=== PATIENT | male | born 1960 | race African-American/Black ===

== ENCOUNTER 2016-10-31 10:37 | Observation (INO) | payer BC ==
[~2016-10-31] VITALS: Ht 172.7 cm; Wt 63.4 kg
[2016-10-31 11:54] LABS: BASOPHILS 0.7 % (0.0-2.0); EOSINOPHILS 1.1 % (0-7); HEMATOCRIT 43.4 % (42.0-54.0); HEMOGLOBIN 14.8 g/dL (13.5-17.5); LYMPHOCYTES 61.6 % (15-50); MCH 29.7 pg (26.0-34.0); MCHC 34.1 g/dL (31.0-37.0); MCV 87.1 fL (80.0-100.0); MEAN PLATELET VOLUME 9.5 fL (7.4-10.4); MONOCYTES 9.5 % (2-11); NEUTROPHILS 27.1 % (40-80); PLATELET COUNT 194 10x3/uL (130-400); RBC 4.98 10x6/uL (4.20-6.10); RDW 13.6 % (11.5-14.5); WBC 5.7 10x3/uL (4.8-10.8)
[2016-10-31 12:02] LABS: APTT 27.9 SECONDS (22.8-39.4); INR 1.06 (0.85-1.17); PROTIME 13.6 SECONDS (11.6-15.0)
[2016-10-31 12:36] LABS: ALBUMIN 3.8 g/dL (3.4-5.0); ALKALINE PHOSPHATASE 53 U/L (46-116); ALT (SGPT) 61 U/L (10-68); BILIRUBIN - TOTAL 0.96 mg/dL (0.2-1.3); CALC OSMOLALITY 275 mosm/kg (275-300); CALCIUM 8.9 mg/dL (8.5-10.1); CARBON DIOXIDE 28.6 mmol/L (21.0-32.0); CHLORIDE - SERUM 102 mmol/L (98-107); CREATININE - SERUM 0.9 mg/dL (0.6-1.3); GLUCOSE 88 mg/dL (74-106); POTASSIUM - SERUM 4.1 mmol/L (3.5-5.1); PROTEIN - SERUM 7.8 g/dL (6.4-8.2); SODIUM 139 mmol/L (136-145); UREA NITROGEN 9 mg/dL (7-18); eGFR NON AFRICAN AMERICAN > 90 mL/min (90-120)
[2016-10-31 14:00] LABS: UDS - AMPHET NEGATIVE QUAL (NEGATIVE); UDS - BARB NEGATIVE QUAL (NEGATIVE); UDS - BENZO NEGATIVE QUAL (NEGATIVE); UDS - COCAINE NEGATIVE QUAL (NEGATIVE); UDS - METH NEGATIVE QUAL (NEGATIVE); UDS - OPIATE NEGATIVE QUAL (NEGATIVE); UDS - PCP NEGATIVE QUAL (NEGATIVE); UDS - THC NEGATIVE QUAL (NEGATIVE)
[2016-10-31 14:12] LABS: APPEARANCE CLEAR (CLEAR); COLOR STRAW (YELLOW)
[2016-10-31 14:13] LABS: BILIRUBIN NEGATIVE (NEGATIVE); GLUCOSE NEGATIVE (NEGATIVE); KETONE NEGATIVE (NEGATIVE); LEUKOCYTE ESTERASE NEGATIVE (NEGATIVE); NITRITE NEGATIVE (NEGATIVE); PROTEIN NEGATIVE (NEGATIVE); SPECIFIC GRAVITY 1.005 (1.005-1.020); UROBILINOGEN NORMAL (NORMAL)
--- NOTE | 2016-10-31 14:50 | NUR ---
ARRIVE TO UNIT VIA WHEELCHAIR FROM ER. REPORT RECIEVED BY MILO LIU IN ER. ALERT AND ORIENTED X4. DENIES PAIN OR SOB. SPEECH CLEAR. STRENGTH 4/5 UPPER EXTREMITIES BILATERALLY. STRENGTH 5/5 LOWER EXTREMITIES BILATERALLY. FULL ROM. EXPRESSES CONSERNS REGARDING SCHEDULED APPT TOMORROW 11/01/16 FOR BONE BIOPSY RESULTS. CONSULT . INITIATE IV FLUIDS LT AC ORDERED. CONTINUE ADMISSION PROCESS. BED LOCKED AND LOW. CALL LIGHT IN REACH. TWO SIDERAILS UP. REFUSE SCDs.
[2016-10-31] MEDS ORDERED: PRINIVIL20 MG PO (15:05)
[2016-10-31] MEDS ORDERED: NORVASC10 MG PO (15:05)
[2016-10-31 15:59] VITALS: BP 144/83; Ht 172.7 cm; Wt 63.4 kg
[2016-10-31 18:08] LABS: CKMB 0.6 U/L (0.0-3.6); CREATINE KINASE 83 UL (21-232)
[2016-10-31 18:11] LABS: TROPONIN-I < 0.017 ng/mL (0.000-0.060)
--- NOTE | 2016-10-31 19:40 | NUR ---
RECEIVED REPORT, IV-LAC-NS @75, [id number], BED IS LOW, SRX 1,DENIES ANY NEEDS, CALL LIGHT IN REACH, WILL CONTINUE TO MONITOR
[2016-10-31 22:23] VITALS: BP 150/88
[2016-11-01 00:29] LABS: CKMB 0.6 U/L (0.0-3.6); CREATINE KINASE 59 UL (21-232)
[2016-11-01 00:33] LABS: TROPONIN-I < 0.017 ng/mL (0.000-0.060)
[2016-11-01 03:36] VITALS: BP 133/72
--- NOTE | 2016-11-01 03:37 | NUR ---
ASSESSMENT COMPLETE, PT SLEEPING, CALL LIGHT IN REACH, WILL CONTINUE TO MONITOR
[2016-11-01 06:22] VITALS: BP 172/100
[2016-11-01 06:53] LABS: HEMATOCRIT 42.6 % (42.0-54.0); HEMOGLOBIN 14.1 g/dL (13.5-17.5); MCHC 33.1 g/dL (31.0-37.0); MCV 87.7 fL (80.0-100.0); MEAN PLATELET VOLUME 10.7 fL (7.4-10.4); PLATELET COUNT 215 10x3/uL (130-400); RBC 4.86 10x6/uL (4.20-6.10); RDW 13.7 % (11.5-14.5); WBC 4.5 10x3/uL (4.8-10.8)
[2016-11-01 07:20] LABS: CALC OSMOLALITY 274 mosm/kg (275-300); CALCIUM 8.4 mg/dL (8.5-10.1); CARBON DIOXIDE 26.7 mmol/L (21.0-32.0); CHLORIDE - SERUM 105 mmol/L (98-107); CHOL - HDL RATIO 3.3 ratio (2.3-4.9); CHOLESTEROL, TOTAL 163 mg/dL (0-200); CKMB 0.1 U/L (0.0-3.6); CREATINE KINASE 49 UL (21-232); CREATININE - SERUM 0.9 mg/dL (0.6-1.3); GLUCOSE 97 mg/dL (74-106); HDL CHOLESTEROL 49 mg/dL (32-96); LDL CHOLESTEROL 105 mg/dL (0-100); LDL-HDL RATIO 2.1 ratio (1.5-3.5); POTASSIUM - SERUM 4.3 mmol/L (3.5-5.1); SODIUM 138 mmol/L (136-145); TRIGLYCERIDE 47 mg/dL (30-200); TROPONIN-I < 0.017 ng/mL (0.000-0.060); UREA NITROGEN 10 mg/dL (7-18); eGFR NON AFRICAN AMERICAN > 90 mL/min (90-120)
--- NOTE | 2016-11-01 07:33 | NUR ---
PT SITTING UP IN BED DENIES NEEDS WILL CONT TO MONITOR.
[2016-11-01 07:35] LABS: BASOPHILS 2 % (0.0-2.0); EOSINOPHILS 2 % (0-7); LYMPHOCYTES 61 % (15-50); MONOCYTES 5 % (2-11); NEUTROPHILS 30 % (40-80); PLATELET ESTIMATE NORMAL
[2016-11-01 09:05] VITALS: BP 122/73
[2016-11-01] MEDS ORDERED: ASPIRIN325 MG PO (11:56)
--- NOTE | 2016-11-01 13:03 | NUR ---
WENT OVER DC INSTRUCTIONS WITH PT PT VERBALIZES UNDERSTANDING. DC PIV WITH CATHETER TIP INTACT. DC TELE. PT WAITING ON RIDE.
--- NOTE | 2016-11-01 13:22 | NUR ---
PT RIDE HERE. VOLUNTEER WHEELING PT OUT TO ER ENTRANCE.
--- NOTE | 2016-11-02 08:47 | EC ---
PATIENT:BRIDGETT REID DATE OF SERVICE: 10/31/16 SEX: M MEDICAL RECORD: [id number] DATE OF : 56 LOCATION:D. D.213 AGE OF PATIENT: 56 ADMISSION DATE: 10/31/16 REFERRING PHYSICIAN: INTERPRETING PHYSICIAN: RASHIDA FIELD MD ECHOCARDIOGRAM REPORT ECHO CHARGES 4 ECHO COMPLETE CLINICAL DIAGNOSIS: TIA ECHOCARDIOGRAPHIC MEASUREMENTS (adult normal given) AC root (d.<3.7cm) 3.6 LV Septum d (<1.2 cm> 1.1 Valve Excursion 2.1 LV Septum (systole) 1.7 Left Atria (s.<4.0cm> 2.8 LVPW d(<1.2cm) 1.2 RV (d.<2.3cm) 2.7 LVPW (sytole) 1.9 LV diastole(<5.6CM) 5.2 MV E-F(>70mm/sec) LV systole 2.7 LVOT Diameter 2.2 MV exc.(>10mm) Est.ejection fraction (50-75%) Pericardial Effusion N DOPPLER: LVIT A 39.0 E 59.0 LA RVSP 35.0 LVOT 103 AOP1/2T Asc. Ao 92.0 RVOT 43.0 RA PA 65.0 AV Gradient Peak 3.4 AV Mean 1.6 AV Area 3.6 MV Gradient Peak 2.8 MV Mean 0.98 MV Area COMMENTS: Media Associate: Sorin YOOE [employer] [place] [employer] Driver:Anders Gustafson TAPE# PACS DATE OF SERVICE: 10/31/2016 Echocardiogram FINDINGS: 1. Left ventricular chamber size is within normal limits. Left ventricular systolic function is normal. Overall ejection fraction estimated at 60%. 2. Left atrium is within normal limits at 2.8 cm, right atrium and right ventricle chamber sizes are as well within normal limits. 3. Valvular structures have normal structure and motion. ECHOCARDIOGRAM REPORT [id number] BRIDGETT REID 4. Doppler interrogation reveals mild mitral regurgitation, mild tricuspid regurgitation. No other valvular insufficiency or stenosis and pulmonary systolic pressure is normal, estimated at 35 mmHg. 5. No evidence of pericardial effusion or left ventricular thrombus. TRANSINT:[id number] Voice Confirmation ID: [id number] DOCUMENT ID: [id number] RASHIDA FIELD MD at [id number] CC: [id number] DICTATION DATE: 11/01/16 0834 VASCULAR NURSE: 11/01/16 1009 DIS IN 11/01/16 [place] [id number] [place] [id number]
== END 2016-11-01 13:23 | disposition home or self-care (01) ==
LOC: D.ER 10:37 → OBSVTIME 13:56 → D.M2 13:56
PROVIDERS: Emergency Medicine; Nurse Practitioner Acute Care; ADMIT Family Medicine
DX: G45.9 Transient cerebral ischemic attack, unspecified (principal); G43.109 Migraine with aura, not intractable, without status migrainosus; I10 Essential (primary) hypertension; E78.5 Hyperlipidemia, unspecified; D72.820 Lymphocytosis (symptomatic); D70.9 Neutropenia, unspecified